=== PATIENT | male | born 1990 ===

== ENCOUNTER 2020-10-28 13:02 | Outpatient (CLI) | payer OTHER, SELFPAY ==
--- NOTE | 2020-10-28 | DI.RAD_ITS ---
Exam(s) XR RIBS BI ONLY EXAM: XR RIBS BI ONLY CLINICAL HISTORY: RIB FRACTURES,S22.39XB TECHNIQUE: COMPARISON: No exams were available for comparison FINDINGS: Five views of the chest and ribs were obtained. The heart is not enlarged. The lungs are clear and well expanded. No rib fracture identified on this limited series. IMPRESSION: RADIATION DOSE DELIVERED: Total DLP
--- NOTE | 2020-10-28 | DI.RAD_ITS ---
Exam(s) XR HAND LT LIMITED EXAM: XR HAND LT LIMITED CLINICAL HISTORY: HAND FX,S62.92XA TECHNIQUE: COMPARISON: CR XR HAND RT LIMITED from 10/28/2020 FINDINGS: Two views were obtained. No bony or soft tissue abnormality seen. IMPRESSION: RADIATION DOSE DELIVERED: Total DLP
--- NOTE | 2020-10-28 | DI.RAD_ITS ---
Exam(s) XR HAND RT LIMITED EXAM: XR HAND RT LIMITED CLINICAL HISTORY: RT HAND FX,S62.91XA TECHNIQUE: COMPARISON: No exams were available for comparison FINDINGS: Two views were obtained. No bony or soft tissue abnormality seen. IMPRESSION: RADIATION DOSE DELIVERED: Total DLP
== END 2020-10-28 13:22 ==
PROVIDERS: PCP Chiropractor; Visit Provider Chiropractor
DX: S22.39XB Fracture of one rib, unspecified side, initial encounter for open fracture (principal); S62.92XA Unspecified fracture of left hand, initial encounter for closed fracture; S62.91XA Unspecified fracture of right hand, initial encounter for closed fracture; X58.XXXA Exposure to other specified factors, initial encounter
CPT/HCPCS: 71110; 73120